=== PATIENT | female | born 1995 | race African-American/Black ===

== ENCOUNTER 2017-01-20 22:59 | Emergency (ER) | payer OTHER ==
[~2017-01-20] VITALS: Ht 162.6 cm; Wt 69.9 kg
[2017-01-20 23:18] VITALS: BP 144/83
--- NOTE | 2017-01-20 23:19 | PHYS DOC ---
Adult General Chief Complaint Chief Complaint: LACERATION/AVULSION HPI HPI Patient is a 21 year old female presenting to the emergency department for evaluation of left hyperthenar laceration sustained shortly prior to arrival. Review of Systems Review of Systems Constitutional: Denies fever or chills [] Musculoskeletal: Denies back pain or joint pain [] Integument: + L hand laceration Neurologic: Denies headache, focal weakness or sensory changes [] Current Medications Current Medications Current Medications Medications (Trade) Dose Ordered Sig/Hayder Start Time Stop Time Status Last Admin Dose Admin Lidocaine/ Epinephrine (Xylocaine 1%-Epi 1:100,000) 20 ml 1X ONCE 01/20/17 23:45 01/20/17 23:46 01/20/17 23:32 20 ML Allergies Allergies Allergies Coded Allergies Type Severity Reaction Last Updated Verified No Known Drug Allergies 01/20/17 No Physical Exam Physical Exam Constitutional: Well developed, well nourished, no acute distress, non-toxic appearance. [] Skin: Warm, dry. Left hyperthenar eminence with approximate 2 cm laceration. Wound was explored and bloodless field and there is no obvious foreign body or tendon laceration. She has full range of motion in her thumb and 5 out of 5 strength in all directions. Neurovascularly intact distally. There is slight swelling to her hyperthenar eminence. Extremities: No tenderness, no cyanosis, no clubbing, ROM intact, no edema. [] Neurologic: Alert and oriented X 3, normal motor function, normal sensory function, no focal deficits noted. [] Current Patient Data Vital Signs Vital Signs Date Time Temp Pulse Resp B/P (MAP) Pulse Ox O2 Delivery O2 Flow Rate FiO2 01/20/17 23:18 94 18 99 Room Air EKG EKG [] Radiology/Procedures Radiology/Procedures Left hand x-ray shows no obvious fracture dislocation soft tissue foreign body or soft tissue gas. Impressions: Indication: [Left hand laceration] Procedure: The patient was placed in the appropriate position and anesthesia approximately 4 mL of lidocaine with epinephrine. The area was then irrigated copiously]. The laceration was closed with 4 5-0 nylon sutures in simple running technique Total repaired wound length: 2 cm. Other Items: [OTHER ITEMS] The patient tolerated the procedure well. Complications: None. Course & Med Decision Making Course & Med Decision Making Wound closed with no complications and she was told to return with any signs of infection or other concerns and to have the sutures taken out in 5-7 days. Dragon Disclaimer Dragon Disclaimer This electronic medical record was generated, in whole or in part, using a voice recognition dictation system. Departure Departure Impression: Primary Impression: Hand laceration Disposition: 01 HOME, SELF-CARE Condition: GOOD Referrals: UNKNOWN PCP NAME (PCP) Patient Instructions: Fingertip Laceration Additional Instructions: Take your sutures out in 5-7 days. Come back to the ER with any new or worsening fevers redness swelling or other general concerns. JUSTIN RAMIREZ DO January 20, 2017 23:19
[2017-01-20] MEDS ORDERED: LIDOCAINE 1%/EPI 1:100,000 20 ML VIAL. INJ ONE (23:45)
--- NOTE | 2017-01-21 08:15 | RAD ---
Examination: 3 views of the left hand History: History of swelling in the left hyperthenar eminence region. Comparison: None available Findings: The alignment of the metacarpophalangeal joints, interphalangeal joint grossly appears unremarkable. There is no obvious acute fracture or dislocation identified. Impression: No acute osseous findings.
== END 2017-01-20 23:55 | disposition home or self-care (01) ==
LOC: ER 22:59
DX: S61.412A Laceration without foreign body of left hand, initial encounter (principal); X58.XXXA Exposure to other specified factors, initial encounter; Y93.89 Activity, other specified; Y92.89 Other specified places as the place of occurrence of the external cause; Y99.8 Other external cause status
CPT/HCPCS: 12001; 73130; 99284; J3490